=== PATIENT | female | born 1975 | race Caucasian/White ===

== ENCOUNTER 2021-02-09 10:00 | Day surgery (SDC) | payer MEDICAID ==
[2021-02-02 16:30] LABS: BASOPHILS # (AUTO) 0.1 X10'3 (0-0.2); BASOPHILS % (AUTO) 1.2 % (0-1); EOSINOPHILS # (AUTO) 0.1 X10'3 (0-0.9); EOSINOPHILS % (AUTO) 1.2 % (0-6); LYMPHOCYTES # (AUTO) 1.7 X10'3 (1.1-4.8); LYMPHOCYTES % (AUTO) 20.4 % (21-51); MEAN CORPUSCULAR HEMOGLOBIN 29.5 PG (27.0-31.0); MEAN CORPUSCULAR VOLUME 89.3 FL (78-98); MEAN PLATELET VOLUME 8.9 FL (7.4-10.4); MONOCYTES # (AUTO) 0.5 X10'3 (0-0.9); MONOCYTES % (AUTO) 6.5 % (2-12); NEUTROPHILS # (AUTO) 5.9 X10'3 (1.8-7.7); NEUTROPHILS % (AUTO) 70.7 % (42-75); PRE OP HEMATOCRIT 45.6 % (35.0-45.0); PRE OP PLATELET COUNT 357 X10'3 (140-440); RED CELL DISTRIBUTION WIDTH 13.2 % (11.5-14.5)
[2021-02-02 16:34] LABS: CLARITY,URINE SLIGHTLY CLOUDY (Clear); COLOR,URINE YELLOW (Yellow); GLUCOSE, URINE NEGATIVE (Neg); KETONES,URINE NEGATIVE (Neg); LEUKOCYTE ESTERASE ,URINE NEGATIVE (Neg); NITRITES, URINE NEGATIVE (Neg); OCCULT BLOOD,URINE MODERATE (Neg); PROTEIN,URINE NEGATIVE (Neg); UROBILINOGEN,URINE 0.2 E.U/dL (0.2-1.0)
[2021-02-02 16:35] LABS: UA COLLECTION TYPE CLN CATCH MIDSTREAM
[2021-02-02 16:46] LABS: ALBUMIN 4.1 G/DL (3.4-5.0); ALKALINE PHOSPHATASE 60 IU/L (46-116); BLOOD UREA NITROGEN 23 MG/DL (7-18); BUN/CREATININE RATIO 26.7 (6.6-38.0); CALCIUM 9.6 MG/DL (8.5-10.1); CHLORIDE 103 MMOL/L (99-107); CREATININE 0.86 MG/DL (0.40-0.90); HCG SERUM QL NEGATIVE; PRE OP ALT 38 U/L (30-65); PRE OP ANION GAP 9 (8-16); PRE OP AST 23 U/L (10-37); PRE OP BILIRUB, TOTAL 0.6 MG/DL (0.0-1.0); PRE OP GLUCOSE 90 MG/DL (70-104); PRE OP SODIUM 139 MMOL/L (135-145); TOTAL CARBON DIOXIDE 27.2 MMOL/L (24-32); TOTAL PROTEIN 8.3 G/DL (6.4-8.2); eGFR 71 ML/MIN
[2021-02-02 17:02] LABS: BACTERIA,URINE NONE SEEN /HPF (Neg); SQUAMOUS EPITHELIAL CELL,UR FEW /LPF (FEW)
[2021-02-02 17:03] LABS: RBC,URINE NONE SEEN /HPF (0-2); WBC,URINE 0-4 /HPF (0-4)
[~2021-02-09] VITALS: Ht 154.9 cm; Wt 86.0 kg
[2021-02-09] VITALS (8 sets, daily range): BP systolic 98–136; BP diastolic 73–88
[~2021-02-09 10:00] MED LIST: LEVO75TA7 PO; ceFOXitin 2GM-NS 100mL ADDvant 100 ML IV ONE; famotidine 20mg tablet PO ONE; ringers solution, lacted 1,000 ML IV SCH
[2021-02-09] MEDS ORDERED: midazolam 1 mg/ML 2ml injection ONE (11:42)
[2021-02-09] MEDS ORDERED: fentaNYL/PF 50MCG/1 ML 2ML syringe ONE (11:42)
[2021-02-09] MEDS ORDERED: proCHLORperazine 10 MG/2 ml inj IV PRN (12:00)
[2021-02-09] MEDS ORDERED: morphine 2 MG/ML inj. syringe IV PRN (12:00)
[2021-02-09] MEDS ORDERED: ringers solution, lacted 1,000 ML IV SCH (12:00)
[2021-02-09] MEDS ORDERED: morphine 4 MG/ML inj SYRINge IV PRN (12:00)
[2021-02-09] MEDS ORDERED: meperidine/PF 25mg/ml syringe IV PRN ×2 (12:00)
[2021-02-09] MEDS ORDERED: ondansetron/PF 4mg/2ml inj IV PRN (12:00)
[2021-02-09] MEDS ORDERED: ondansetron/PF 4mg/2ml inj ONE (12:15)
[2021-02-09] MEDS ORDERED: dexamethasone sod phosphate 4mg/ml inj. ONE (12:15)
[2021-02-09] MEDS ORDERED: acetaminophen 1,000mg/100ml IV 100 ML IV ONE (12:15)
[2021-02-09] MEDS ORDERED: propofol inj 20 ML IV ONE (12:15)
[2021-02-09] MEDS ORDERED: LIDOcaine 2% (20mg/ml) 5ml vial ONE (12:15)
[2021-02-09] MEDS ORDERED: meperidine/PF 25mg/ml syringe ONE (12:21)
[2021-02-09] MEDS: meperidine/PF 25mg/ml syringe IV PRN ×2 (12:37→13:01)
--- NOTE | 2021-02-09 13:33 | NUR ---
AWAKE AND ORIENTED. VITALS STABLE. NO BLEEDING NOTED. STATES PAIN IMPROVING. HOME WITH HER SPOUSE AT THIS TIME.
== END 2021-02-09 13:33 | disposition home or self-care (01) ==
LOC: PAS 10:00
PROVIDERS: ATTEND Obstetrics & Gynecology Obstetrics
DX: N92.1 Excessive and frequent menstruation with irregular cycle (principal); N94.6 Dysmenorrhea, unspecified; Z20.822 Contact with and (suspected) exposure to COVID-19; D64.9 Anemia, unspecified; E66.9 Obesity, unspecified; Z68.33 Body mass index [BMI] 33.0-33.9, adult; Z98.51 Tubal ligation status; Z98.890 Other specified postprocedural states; Z88.2 Allergy status to sulfonamides; Z91.013 Allergy to seafood; Z79.899 Other long term (current) drug therapy; Z72.89 Other problems related to lifestyle; Z82.49 Family history of ischemic heart disease and other diseases of the circulatory system; Z83.3 Family history of diabetes mellitus
CPT/HCPCS: 36415; 58558; 71046; 80053; 81001; 82948; 84703; 85025; 86885; 86900; 86901; 93005; J0131; J0694; J1100; J2001; J2175; J2250; J2405; J2704; J3010; J7030; U0003; 87635; A4355; A4618; A6258; J7120

== ENCOUNTER 2022-03-15 09:50 | Day surgery (SDC) | payer MEDICAID ==
[2022-03-08 11:26] LABS: CLARITY,URINE CLEAR (Clear); GLUCOSE, URINE NEGATIVE (Neg); KETONES,URINE NEGATIVE (Neg); LEUKOCYTE ESTERASE ,URINE NEGATIVE (Neg); NITRITES, URINE NEGATIVE (Neg); OCCULT BLOOD,URINE TRACE-INTACT (Neg); PROTEIN,URINE NEGATIVE (Neg); UROBILINOGEN,URINE 0.2 E.U/dL (0.2-1.0)
[2022-03-08 11:36] LABS: COLOR,URINE STRAW (Yellow); UA COLLECTION TYPE CLN CATCH MIDSTREAM
[2022-03-08 11:38] LABS: MUCUS STRANDS FEW /LPF (Neg); SQUAMOUS EPITHELIAL CELL,UR FEW /LPF (FEW)
[2022-03-08 11:39] LABS: BACTERIA,URINE FEW /HPF (Neg); RBC,URINE 0-2 /HPF (0-2); WBC,URINE 0-4 /HPF (0-4)
[2022-03-08 12:05] LABS: BASOPHILS # (AUTO) 0.1 X10'3 (0-0.2); BASOPHILS % (AUTO) 0.8 % (0-1); EOSINOPHILS % (AUTO) 0.4 % (0-6); LYMPHOCYTES # (AUTO) 1.7 X10'3 (1.1-4.8); LYMPHOCYTES % (AUTO) 22.2 % (21-51); MEAN CORPUSCULAR HEMOGLOBIN 28.5 PG (27.0-31.0); MEAN CORPUSCULAR HGB CONC 33.2 g/dL (33.0-36.5); MEAN CORPUSCULAR VOLUME 85.9 FL (78-98); MEAN PLATELET VOLUME 8.5 FL (7.4-10.4); MONOCYTES # (AUTO) 0.6 X10'3 (0-0.9); MONOCYTES % (AUTO) 8.5 % (2-12); NEUTROPHILS # (AUTO) 5.1 X10'3 (1.8-7.7); NEUTROPHILS % (AUTO) 68.1 % (42-75); PRE OP HEMATOCRIT 42.3 % (35.0-45.0); PRE OP PLATELET COUNT 327 X10'3 (140-440); RED BLOOD COUNT 4.92 X10'6 (4.20-5.60); RED CELL DISTRIBUTION WIDTH 13.2 % (11.5-14.5)
[2022-03-08 12:25] LABS: ALBUMIN 3.9 G/DL (3.4-5.0); ALBUMIN/GLOBULIN RATIO 1.1 (1.1-1.5); ALKALINE PHOSPHATASE 49 IU/L (46-116); BLOOD UREA NITROGEN 20 MG/DL (7-18); BUN/CREATININE RATIO 21.5 (6.6-38.0); CALCIUM 8.6 MG/DL (8.5-10.1); CHLORIDE 106 MMOL/L (99-107); CREATININE 0.93 MG/DL (0.40-0.90); PRE OP ALT 23 U/L (30-65); PRE OP ANION GAP 9 (8-16); PRE OP AST 17 U/L (10-37); PRE OP BILIRUB, TOTAL 0.8 MG/DL (0.0-1.0); PRE OP GLUCOSE 92 MG/DL (70-104); PRE OP SODIUM 140 MMOL/L (135-145); TOTAL CARBON DIOXIDE 25.4 MMOL/L (24-32); TOTAL PROTEIN 7.4 G/DL (6.4-8.2); eGFR 65 ML/MIN
[2022-03-08 12:35] LABS: HCG SERUM QL NEGATIVE
[~2022-03-15] VITALS: Ht 157.5 cm; Wt 86.1 kg
[2022-03-15] VITALS (19 sets, daily range): BP systolic 116–139; BP diastolic 75–94
[2022-03-15] MEDS ORDERED: morphine 2 MG/ML inj. syringe IV PRN (12:55)
[2022-03-15] MEDS ORDERED: ondansetron/PF 4mg/2ml inj IV PRN (12:55)
[2022-03-15] MEDS ORDERED: ringers solution, lacted 1,000 ML IV SCH (12:55)
[2022-03-15] MEDS ORDERED: proCHLORperazine 10 MG/2 ml inj IV PRN (12:55)
[2022-03-15] MEDS ORDERED: morphine 4 MG/ML inj SYRINge IV PRN (12:55)
[2022-03-15] MEDS ORDERED: meperidine/PF 25mg/ml syringe IV PRN ×2 (12:55)
[2022-03-15] MEDS ORDERED: propofol inj 20 ML IV ONE (13:14)
[2022-03-15] MEDS ORDERED: fentaNYL/PF 50MCG/1 ML 2ML syringe ONE (13:15)
[2022-03-15] MEDS ORDERED: midazolam 1 mg/ML 2ml injection ONE (13:15)
[2022-03-15] MEDS ORDERED: meperidine/PF 25mg/ml syringe ONE (13:59)
[2022-03-15] MEDS ORDERED: ondansetron/PF 4mg/2ml inj ONE (14:23)
--- NOTE | 2022-03-15 14:34 | NUR ---
Received from OR via [facility] , accompanied by Anesthesiologist DR GONZALEZ and report given by Anesthesiolgist. PT PRESENTS WITH 20G LEFT HAND, VSS. Addendum: 03/15/22 at 1513 by Isabell Grayson RN, RN Amended: Links added.
[2022-03-15] MEDS: meperidine/PF 25mg/ml syringe IV PRN ×2 (14:38→15:03)
[2022-03-15] MEDS ORDERED: ketorolac tromethamine 15mg/ml inj. IV ONE (15:05)
[2022-03-15] MEDS ORDERED: HYDROcodone/acetaminophen 10/325mg tab PO ONE (15:45)
--- NOTE | 2022-03-15 17:04 | NUR ---
ALL DISCHARGE CRITERIA HAS BEEN MET. VSS, PAIN AT A TOLERABLE LEVEL, VOIDING AND ABLE TO SAFELY AMBULATE AND TRANSFER SELF. IV TAKEN OUT WITHOUT ANY COMPLICATIONS. ALL DISCHARGE INSTRUCTIONS COVERED WITH PATIENT AND ALL QUESTIONS ANSWERED. PATIENT TAKEN OUT VIA WHEELCHAIR TO PERSONAL VEHICLE WHERE FAMILY/FRIEND DROVE PATIENT HOME. Addendum: 03/15/22 at 1717 by Isabell Grayson RN, RN Amended: Links added.
== END 2022-03-15 17:04 | disposition home or self-care (01) ==
LOC: PAS 09:50
PROVIDERS: ATTEND Obstetrics & Gynecology Obstetrics
DX: N93.8 Other specified abnormal uterine and vaginal bleeding (principal); N92.1 Excessive and frequent menstruation with irregular cycle; D64.9 Anemia, unspecified; E66.9 Obesity, unspecified; Z68.33 Body mass index [BMI] 33.0-33.9, adult; Z20.822 Contact with and (suspected) exposure to COVID-19; Z98.51 Tubal ligation status; Z98.890 Other specified postprocedural states; Z79.899 Other long term (current) drug therapy; Z88.2 Allergy status to sulfonamides; Z91.013 Allergy to seafood; Z82.49 Family history of ischemic heart disease and other diseases of the circulatory system; Z83.3 Family history of diabetes mellitus
CPT/HCPCS: 36415; 58563; 71046; 80053; 81001; 82948; 84703; 85025; 86885; 86900; 86901; 93005; J0694; J1885; J2175; J2250; J2405; J2704; J3010; J7030; J7120; U0003; U0005; Z7506; Z7508; Z7512; A4355; A4618; A4649; A7000

== ENCOUNTER 2023-12-02 21:08 | Emergency (ER) | payer MEDICAID ==
[~2023-12-02] VITALS: Ht 154.9 cm; Wt 89.1 kg
[~2023-12-02 21:08] MED LIST changes: -ceFOXitin 2GM-NS 100mL ADDvant 100 ML IV ONE; -famotidine 20mg tablet PO ONE; -ringers solution, lacted 1,000 ML IV SCH
[2023-12-02 21:45] VITALS: BP 135/93; PULSE 75; RESP 17; TEMP 98.1; O2SAT 99
[2023-12-02] MEDS ORDERED: TETRAcaine 0.5% ophthalmic drops 15ml EACHEYE ONE (23:10)
[2023-12-02] MEDS ORDERED: TETRACAINE 0.5% 4 ML OPHTHALMIC DROPS EACHEYE ONE (23:20)
[2023-12-03] MEDS ORDERED: HYDR-3965 PO (01:10)
[2023-12-03] MEDS ORDERED: HYDROcodone/acetaminophen 10/325mg tab PO ONE (01:10)
[2023-12-03] MEDS ORDERED: CEPH-585 PO (01:17)
[2023-12-03] MEDS ORDERED: cephalexin 250mg capsule PO ONE (01:25)
== END 2023-12-03 01:59 | disposition home or self-care (01) ==
LOC: ER 21:09
DX: T78.3XXA Angioneurotic edema, initial encounter (principal); B02.9 Zoster without complications; E03.9 Hypothyroidism, unspecified; Z90.710 Acquired absence of both cervix and uterus; Z88.2 Allergy status to sulfonamides; Z79.2 Long term (current) use of antibiotics; Z79.899 Other long term (current) drug therapy
CPT/HCPCS: 94760; 99284

== ENCOUNTER 2024-12-02 12:17 | Emergency (ER) | payer OTHER, MEDICAID ==
[~2024-12-02] VITALS: Ht 154.9 cm; Wt 89.3 kg
[~2024-12-02 12:17] MED LIST changes: +CEPH-585 PO
[2024-12-02 12:37] VITALS: BP 111/73; PULSE 83; TEMP 97.6; O2SAT 98
[2024-12-02 14:32] VITALS: RESP 16
[2024-12-02] MEDS: ketorolac trometh 15mg/ml vial 15 MG/ML ML IM ONE (14:32)
[2024-12-02] MEDS ORDERED: METH-798 PO (15:19)
[2024-12-02] MEDS ORDERED: HYDR-3965 PO (15:19)
[2024-12-02] MEDS ORDERED: NAPR-996 PO (15:19)
== END 2024-12-02 15:25 | disposition home or self-care (01) ==
LOC: ER 12:18
DX: S30.0XXA Contusion of lower back and pelvis, initial encounter (principal); E03.9 Hypothyroidism, unspecified; Z88.2 Allergy status to sulfonamides; Z91.013 Allergy to seafood; Z90.710 Acquired absence of both cervix and uterus; V49.9XXA Car occupant (driver) (passenger) injured in unspecified traffic accident, initial encounter; Y93.89 Activity, other specified; Y92.89 Other specified places as the place of occurrence of the external cause; Y99.8 Other external cause status
CPT/HCPCS: 71045; 72220; 96372; 99284; J1885